=== PATIENT | female | born 1960 | race African-American/Black ===

== ENCOUNTER 2019-08-09 04:17 | Inpatient (IN) ==
[2019-08-09] MEDS ORDERED: FUROSEMIDE 40 MG/4 ML VIAL IV STA (04:39)
[2019-08-09] MEDS ORDERED: ALBUTEROL/IPRATROPIUM 3 ML NEB RESP TX STA (04:39)
[2019-08-09 04:47] LABS: Basophils # 0.1 10*3/uL (0.0-0.2); Basophils % 0.7 % (0.0-0.8); Eosinophils # 0.2 10*3/uL (0.0-0.87); Eosinophils % 1.8 % (0.00-10.9); Hematocrit 42.3 VOL% (35.7-47.0); Hemoglobin 13.4 GM/DL (12.0-16.0); Immature Granulocytes % 0.2 %; Immature Granulocytes Absolute 0.02 #; Lymphocytes # 4.2 10*3/uL (1.4-4.0); Lymphocytes % 42.4 % (21.3-54.2); Mean Corpuscular HGB Conc 31.7 GM/DL (32-36); Mean Corpuscular Volume 93.2 FL (87-102); Mean Platelet Volume 10.3 FL (9.6-12.0); Monocytes % 6.4 % (1.7-12.7); Neutrophils % 48.5 % (38.7-73.9); Platelet Count 264 T/CUMM (130-400); Red Blood Count 4.54 MC/CUMM (3.8-5.5); Red Cell Distribution Width 13.1 % (9.3-17.3); White Blood Count 9.9 T/CUMM (4-12)
[2019-08-09 05:13] LABS: Alanine Aminotransferase 45 U/L (13-56); Albumin 3.1 G/DL (3.4-5.0); Alkaline Phosphatase 95 U/L (45-117); Aspartate Amino Transferase 25 U/L (0-37); Bilirubin,Total < 0.39 MG/DL (0.2-1.0); Blood Urea Nitrogen 19 MG/DL (7-18); Calcium 8.9 MG/DL (8.5-10.1); Estimated Glom Filtration Rate 106 ML/MIN; Glucose 149 MG/DL (74-106); Osmolality,Calculated 283.4 MOS/KG (273-304); Total Protein 7.4 G/DL (6.4-8.3)
[2019-08-09] MEDS ORDERED: ASPIRIN EC 325 MG TABLET PO STA (05:16)
[2019-08-09] MEDS ORDERED: ENOXAPARIN 30 MG/0.3 ML SYRINGE SUBCUT STA (05:22)
[2019-08-09] MEDS ORDERED: ENOXAPARIN 100 MG/ML SYRINGE SUBCUT ONE (05:38)
[2019-08-09] MEDS ORDERED: ACETAMINOPHEN 325 MG TABLET PO PRN (07:23)
[2019-08-09] MEDS ORDERED: DEXTROSE 10% 250 ML BAG IV PRN (07:23)
[2019-08-09] MEDS ORDERED: GLUCAGON 1 MG VIAL IM PRN (07:23)
[2019-08-09] MEDS ORDERED: ALUMINUM/MAGNES/SIMETH MAX STR 30 ML UDCUP PO PRN (07:23)
[2019-08-09] MEDS ORDERED: FUROSEMIDE 40 MG/4 ML VIAL IV SCH (08:00)
[2019-08-09] MEDS ORDERED: MAGNESIUM SULF RIDER 2 GM in PREMIX 1 EACH IV PRN (08:30)
[2019-08-09] MEDS ORDERED: MAGNESIUM SULF RIDER 4 GM in PREMIX 1 EACH IV PRN (08:30)
[2019-08-09] MEDS: METOPROLOL SUCCINATE XL 50 MG TABLET PO SCH (09:49)
[2019-08-09] MEDS: INSULIN LISPRO 100 UNIT/ML SUBCUT SCH ×4 (09:49→20:57)
[2019-08-09] MEDS: PANTOPRAZOLE 40 MG TABLET PO SCH (09:49)
[2019-08-09] MEDS: MAGNESIUM OXIDE 400 MG TABLET PO SCH ×2 (09:49→20:57)
[2019-08-09 13:16] LABS: Barbiturates Screen,Urine Negative (Negative); Benzodiazepines Screen,Urine Negative (Negative); Cannabinoid Screen,Urine Negative (Negative); Opiate Screen,Urine Negative (Negative); Phencyclidine Screen,Urine Negative (Negative)
[2019-08-09 13:23] LABS: Apearance,Urine CLEAR (Clear); Bacteria,Urine Occasional /HPF (Few); Bilirubin,Urine Negative (Negative); Blood, Urine Negative (Negative); Glucose,Urine (UA) Negative (Negative); Hyaline Casts,Urine 3 /LPF (0-3); Ketones,Urine Negative (Negative); Mucus,Urine Occasional /LPF (Occasional); Nitrite,Urine Negative (Negative); Protein,Urine Negative; Squamous Epithelial Cell,Urine Occasional /HPF (0-10); Urine Color Yellow (Yellow); Urine Specific Gravity 1.011 (1.001-1.035); Urine Urobilinogen < 2.0 EU/DL (0.2-1.0)
[2019-08-09] MEDS: FOLIC ACID 1 MG TABLET PO SCH ×2 (14:42→20:57)
[2019-08-10 05:07] LABS: Basophils % 0.4 % (0.0-0.8); Eosinophils # 0.2 10*3/uL (0.0-0.87); Eosinophils % 1.8 % (0.00-10.9); Hematocrit 41.3 VOL% (35.7-47.0); Hemoglobin 12.9 GM/DL (12.0-16.0); Immature Granulocytes % 0.2 %; Immature Granulocytes Absolute 0.02 #; Lymphocytes # 2.9 10*3/uL (1.4-4.0); Lymphocytes % 31.6 % (21.3-54.2); Mean Corpuscular HGB Conc 31.2 GM/DL (32-36); Mean Corpuscular Volume 93.7 FL (87-102); Mean Platelet Volume 11.1 FL (9.6-12.0); Monocytes % 8.6 % (1.7-12.7); Neutrophils % 57.4 % (38.7-73.9); Platelet Count 257 T/CUMM (130-400); Red Blood Count 4.41 MC/CUMM (3.8-5.5); Red Cell Distribution Width 13.1 % (9.3-17.3); White Blood Count 9.1 T/CUMM (4-12)
[2019-08-10 05:52] LABS: Albumin 2.8 G/DL (3.4-5.0); Calcium 8.7 MG/DL (8.5-10.1); Osmolality,Calculated 278.7 MOS/KG (273-304); Total Protein 7.2 G/DL (6.4-8.3)
[2019-08-10 05:53] LABS: Risk Ratio 2.45
[2019-08-10] MEDS: ENOXAPARIN 40 MG/0.4 ML SYRINGE SUBCUT SCH (06:34)
[2019-08-10] MEDS: INSULIN LISPRO 100 UNIT/ML SUBCUT SCH ×4 (07:28→21:37)
[2019-08-10] MEDS: MAGNESIUM OXIDE 400 MG TABLET PO SCH ×2 (08:31→21:38)
[2019-08-10] MEDS: PANTOPRAZOLE 40 MG TABLET PO SCH (08:32)
[2019-08-10] MEDS: FUROSEMIDE 40 MG TABLET PO SCH (08:32)
[2019-08-10] MEDS: FOLIC ACID 1 MG TABLET PO SCH ×2 (08:32→21:38)
[2019-08-10] MEDS: ASPIRIN EC 81 MG TABLET PO SCH (08:32)
[2019-08-10] MEDS: METOPROLOL SUCCINATE XL 50 MG TABLET PO SCH (08:32)
[2019-08-10] MEDS: lisinopriL 2.5 MG TABLET PO SCH (21:38)
[2019-08-11 04:56] LABS: Basophils % 0.4 % (0.0-0.8); Eosinophils # 0.2 10*3/uL (0.0-0.87); Hematocrit 43.4 VOL% (35.7-47.0); Hemoglobin 13.7 GM/DL (12.0-16.0); Immature Granulocytes % 0.3 %; Immature Granulocytes Absolute 0.03 #; Lymphocytes # 2.4 10*3/uL (1.4-4.0); Lymphocytes % 25.4 % (21.3-54.2); Mean Corpuscular HGB Conc 31.6 GM/DL (32-36); Mean Corpuscular Volume 91.9 FL (87-102); Mean Platelet Volume 11.1 FL (9.6-12.0); Monocytes % 6.9 % (1.7-12.7); Platelet Count 234 T/CUMM (130-400); Red Blood Count 4.72 MC/CUMM (3.8-5.5); Red Cell Distribution Width 12.9 % (9.3-17.3); White Blood Count 9.5 T/CUMM (4-12)
[2019-08-11 05:22] LABS: Osmolality,Calculated 277.8 MOS/KG (273-304)
[2019-08-11] MEDS: ENOXAPARIN 40 MG/0.4 ML SYRINGE SUBCUT SCH (06:45)
[2019-08-11] MEDS: INSULIN LISPRO 100 UNIT/ML SUBCUT SCH ×4 (08:29→20:00)
[2019-08-11] MEDS: FOLIC ACID 1 MG TABLET PO SCH ×2 (09:06→20:00)
[2019-08-11] MEDS: PANTOPRAZOLE 40 MG TABLET PO SCH (09:06)
[2019-08-11] MEDS: lisinopriL 2.5 MG TABLET PO SCH ×2 (09:06→20:00)
[2019-08-11] MEDS: FUROSEMIDE 40 MG TABLET PO SCH (09:06)
[2019-08-11] MEDS: MAGNESIUM OXIDE 400 MG TABLET PO SCH ×2 (09:06→20:00)
[2019-08-11] MEDS: METOPROLOL SUCCINATE XL 50 MG TABLET PO SCH (09:06)
[2019-08-11] MEDS: ASPIRIN EC 81 MG TABLET PO SCH (09:07)
[2019-08-11] MEDS ORDERED: VANCOMYCIN INJ 1,000 MG in SODIUM CHLORIDE 0.9% 250 ML IV ONE (13:49)
[2019-08-11] MEDS ORDERED: SODIUM CHLORIDE 0.9% 1,000 ML IV SCH (14:00)
[2019-08-12 05:04] LABS: Basophils # 0.1 10*3/uL (0.0-0.2); Basophils % 0.6 % (0.0-0.8); Eosinophils # 0.2 10*3/uL (0.0-0.87); Eosinophils % 1.9 % (0.00-10.9); Hematocrit 42.6 VOL% (35.7-47.0); Hemoglobin 13.6 GM/DL (12.0-16.0); Immature Granulocytes % 0.3 %; Immature Granulocytes Absolute 0.03 #; Lymphocytes # 2.1 10*3/uL (1.4-4.0); Lymphocytes % 23.4 % (21.3-54.2); Mean Corpuscular HGB Conc 31.9 GM/DL (32-36); Mean Corpuscular Volume 91.8 FL (87-102); Mean Platelet Volume 10.7 FL (9.6-12.0); Monocytes % 7.8 % (1.7-12.7); Platelet Count 219 T/CUMM (130-400); Red Blood Count 4.64 MC/CUMM (3.8-5.5); Red Cell Distribution Width 13.1 % (9.3-17.3)
[2019-08-12 05:39] LABS: Calcium 8.7 MG/DL (8.5-10.1); Osmolality,Calculated 276.8 MOS/KG (273-304)
[2019-08-12] MEDS ORDERED: VANCOMYCIN INJ 1,000 MG in SODIUM CHLORIDE 0.9% 250 ML IV ONE (07:03)
[2019-08-12] MEDS: INSULIN LISPRO 100 UNIT/ML SUBCUT SCH ×4 (08:51→21:33)
[2019-08-12] MEDS ORDERED: DIAZEPAM 5 MG TABLET PO ONE (10:00)
[2019-08-12] MEDS ORDERED: FAMOTIDINE 20 MG TABLET PO ONE (10:00)
[2019-08-12] MEDS ORDERED: VANCOMYCIN 500 MG VIAL ONE (12:10)
[2019-08-12] MEDS ORDERED: LIDOCAINE 1% 20 ML VIAL ONE (12:11)
[2019-08-12] MEDS ORDERED: HEPARIN/NACL 0.9% 2 UNITS/ML 500 ML IV ONE (12:17)
[2019-08-12] MEDS ORDERED: TISSUE ADHESIVE 1 EACH APPLICATOR TOP ONE ×2 (14:06)
[2019-08-12] MEDS ORDERED: GABAPENTIN 600 MG TABLET PO PRN (14:25)
[2019-08-12] MEDS ORDERED: SEVOFLURANE 1 UNIT/15 MINUTE INH ONE (14:31)
[2019-08-12] MEDS ORDERED: fentaNYL 100 MCG/2 ML VIAL ONE (14:31)
[2019-08-12] MEDS ORDERED: MIDAZOLAM 2 MG/2 ML VIAL ONE (14:31)
[2019-08-12] MEDS ORDERED: SODIUM CHLORIDE 0.9% 250 ML IV ONE (14:32)
[2019-08-12] MEDS ORDERED: PHENYLEPHRINE 1 MG/10 ML SYRINGE IV ONE (14:32)
[2019-08-12] MEDS ORDERED: HYDROmorphone 2 MG/1 ML VIAL ONE (14:53)
[2019-08-12] MEDS ORDERED: NALOXONE 0.4 MG/ML VIAL IV PRN (14:58)
[2019-08-12] MEDS ORDERED: HYDROmorphone PCA 30 MG/30 ML SYRINGE IV ONE (15:43)
[2019-08-12] MEDS ORDERED: HYDROmorphone PCA 30 MG/30 ML SYRINGE IV SCH (16:00)
[2019-08-12] MEDS: FOLIC ACID 1 MG TABLET PO SCH ×2 (16:37→21:33)
[2019-08-12] MEDS: FUROSEMIDE 40 MG TABLET PO SCH (16:37)
[2019-08-12] MEDS: PANTOPRAZOLE 40 MG TABLET PO SCH (16:38)
[2019-08-12] MEDS: MAGNESIUM OXIDE 400 MG TABLET PO SCH ×2 (16:38→21:33)
[2019-08-12] MEDS: METOPROLOL SUCCINATE XL 50 MG TABLET PO SCH (16:38)
[2019-08-12] MEDS: lisinopriL 2.5 MG TABLET PO SCH ×2 (16:38→21:32)
[2019-08-12] MEDS: ASPIRIN EC 81 MG TABLET PO SCH (16:38)
[2019-08-12] MEDS: ONDANSETRON 4 MG/2 ML VIAL IV PRN (19:56)
[2019-08-13] MEDS ORDERED: VANCOMYCIN INJ 1,000 MG in SODIUM CHLORIDE 0.9% 250 ML IV ONE (02:20)
[2019-08-13 05:48] LABS: Basophils % 0.3 % (0.0-0.8); Eosinophils % 0.2 % (0.00-10.9); Hematocrit 39.6 VOL% (35.7-47.0); Immature Granulocytes % 0.4 %; Immature Granulocytes Absolute 0.05 #; Lymphocytes # 1.6 10*3/uL (1.4-4.0); Lymphocytes % 12.1 % (21.3-54.2); Mean Corpuscular HGB Conc 30.3 GM/DL (32-36); Mean Corpuscular Volume 97.1 FL (87-102); Mean Platelet Volume 10.9 FL (9.6-12.0); Monocytes % 5.4 % (1.7-12.7); Neutrophils % 81.6 % (38.7-73.9); Platelet Count 244 T/CUMM (130-400); Red Blood Count 4.08 MC/CUMM (3.8-5.5); Red Cell Distribution Width 13.1 % (9.3-17.3); White Blood Count 13.2 T/CUMM (4-12)
[2019-08-13 06:08] LABS: Calcium 8.6 MG/DL (8.5-10.1); Osmolality,Calculated 271.2 MOS/KG (273-304)
[2019-08-13] MEDS: INSULIN LISPRO 100 UNIT/ML SUBCUT SCH ×4 (08:46→22:13)
[2019-08-13] MEDS: MAGNESIUM OXIDE 400 MG TABLET PO SCH ×2 (08:53→21:32)
[2019-08-13] MEDS: FUROSEMIDE 40 MG TABLET PO SCH (08:54)
[2019-08-13] MEDS: lisinopriL 2.5 MG TABLET PO SCH ×2 (08:54→21:32)
[2019-08-13] MEDS: FOLIC ACID 1 MG TABLET PO SCH ×2 (08:54→21:31)
[2019-08-13] MEDS: ASPIRIN EC 81 MG TABLET PO SCH (08:54)
[2019-08-13] MEDS: PANTOPRAZOLE 40 MG TABLET PO SCH (08:54)
[2019-08-13] MEDS: METOPROLOL SUCCINATE XL 50 MG TABLET PO SCH ×2 (08:54→21:32)
[2019-08-13] MEDS: ONDANSETRON 4 MG/2 ML VIAL IV PRN ×4 (08:59→21:35)
[2019-08-13] MEDS: traMADol 50 MG TABLET PO PRN ×2 (14:29→21:32)
[2019-08-14] MEDS: traMADol 50 MG TABLET PO PRN ×2 (04:09→10:16)
[2019-08-14 05:17] LABS: Basophils % 0.2 % (0.0-0.8); Eosinophils # 0.1 10*3/uL (0.0-0.87); Hematocrit 38.7 VOL% (35.7-47.0); Hemoglobin 12.1 GM/DL (12.0-16.0); Immature Granulocytes % 0.3 %; Immature Granulocytes Absolute 0.04 #; Lymphocytes % 15.8 % (21.3-54.2); Mean Corpuscular HGB Conc 31.3 GM/DL (32-36); Mean Corpuscular Volume 95.1 FL (87-102); Mean Platelet Volume 11.2 FL (9.6-12.0); Monocytes % 7.3 % (1.7-12.7); Neutrophils % 75.4 % (38.7-73.9); Platelet Count 219 T/CUMM (130-400); Red Blood Count 4.07 MC/CUMM (3.8-5.5); Red Cell Distribution Width 12.9 % (9.3-17.3); White Blood Count 12.6 T/CUMM (4-12)
[2019-08-14 05:54] LABS: Calcium 8.4 MG/DL (8.5-10.1); Osmolality,Calculated 269.2 MOS/KG (273-304)
[2019-08-14] MEDS: INSULIN LISPRO 100 UNIT/ML SUBCUT SCH ×3 (08:23→17:11)
[2019-08-14] MEDS: FUROSEMIDE 40 MG TABLET PO SCH (08:53)
[2019-08-14] MEDS: lisinopriL 2.5 MG TABLET PO SCH ×2 (08:53→08:59)
[2019-08-14] MEDS: PANTOPRAZOLE 40 MG TABLET PO SCH (08:53)
[2019-08-14] MEDS: METOPROLOL SUCCINATE XL 50 MG TABLET PO SCH (08:53)
[2019-08-14] MEDS: ASPIRIN EC 81 MG TABLET PO SCH (08:53)
[2019-08-14] MEDS: MAGNESIUM OXIDE 400 MG TABLET PO SCH (08:53)
[2019-08-14] MEDS: FOLIC ACID 1 MG TABLET PO SCH (08:53)
[2019-08-14 16:36] VITALS: BP 103/59
== END 2019-08-14 17:49 | disposition home or self-care (01) | DRG 227 ==
LOC: N.ED 04:17 → SUATTDRO 06:13 → N.EDINP 06:13 → N.CC 07:20 → N.TELEN 08-10 18:01
PROVIDERS: ADMIT Internal Medicine; ATTEND Internal Medicine
PROC: [UNRECOGNIZED PROCEDURE] (2019-08-12 13:15)